=== PATIENT | female | born 1960 | race Caucasian/White ===

== ENCOUNTER 2024-09-26 07:39 | Outpatient (REF) | payer MEDICARE, MEDICAID, SELFPAY ==
--- NOTE | ~2024-09-26 | US_ITS ---
EXAMINATION: US ABDOMEN HISTORY: ELEVATED LFTS TECHNIQUE: Real-time grayscale ultrasound imaging of the abdomen was performed and images were reviewed. COMPARISON: There are no prior studies for comparison. FINDINGS: Liver: The right lobe of the liver measures 14.1 cm in size. The left lobe of the liver measures 8.0 cm in size. The liver demonstrates heterogeneous increased echotexture, consistent with steatosis. No focal mass or intrahepatic biliary ductal dilatation is identified. There is normal hepatopedal flow in the portal vein. Gallbladder and biliary tree: The gallbladder is surgically absent. The common bile duct measures up to 12 mm in diameter. Kidneys: The right kidney measures 10.4 cm in length. The left kidney measures 11.7 cm in length. The kidneys are unremarkable, without evidence of masses, hydronephrosis, or calculi. Pancreas: Pancreatic head is unremarkable. The remainder of the pancreas is obscured by bowel gas. Spleen: The spleen is normal in size and contour, measuring 12.1 cm in length. Abdominal aorta and inferior vena cava: The visualized portions of the abdominal aorta and inferior vena cava are normal in caliber. There is no free fluid in the abdomen. US/US abdomen complete IMPRESSION: 1. Hepatic steatosis. 2. Dilatation of the common bile duct which may be within normal limits for a patient status post cholecystectomy. There is no intrahepatic biliary ductal dilatation. Electronically signed by: Otis Sosa MD 09/26/2024 08:37 AM EDT
--- OUTSIDE RECORDS SUMMARY | 2024-09-26 07:42 | XMS_ITS ---
Author Organization [facility] Address [address] [place] [address] Care Team Providers Care Swimming Teacher Name Role Phone Sonido Puri MD Primary Care Provider Unavaila Kevin Smith Jr Unavailable Allergies Allergen (clinical drug ingredient) Drug/Non Drug Allergy documented on EMR Reaction Allergy Type Onset Date Status lisinopril Lisinopril cough Drug Allergy Activ e REASON FOR VISIT Patient presents today for IBS, gerd Medications Medication SIG (Take, Route, Frequency, Duration) Notes Start Date End Date Status Azelastine & Fluticasone Active Losartan Potassium 50 MG 1 tablet Orally Once a day Active Potassium Bicarbonate 6.5 MEQ as directed Orally Active Ondansetron HCl 4 MG/2ML as directed Intravenous tid Active Tolterodine Tartrate ER 4 MG Oral for 90 [id number],Unavail able Active Omeprazole 40 MG TAKE 1 CAPSULE BY MOUTH EVERY DAY Orally twice a day for 90 days Active Anti-Diarrheal 2 MG 1 tablet as needed Orally Four times a day for 30 days Active hydrOXYzine Pamoate 25 MG TAKE 1 CAPSULE BY MOUTH DAILY AT BEDTIME Oral for 30 as needed Active Cetirizine HCl 10 MG TAKE 1 TABLET BY MOUTH DAILY Diagnosis Unavailable Oral for 30 Active Nabumetone 750 MG 1 tablet Orally Once a day Active hydroCHLOROthiazide 25mg Active ProAir HFA Active PARoxetine HCl 40 MG Orally 10 mg both Active Atorvastatin Calcium 40 MG Orally Active Acetaminophen 1000mg prn Active Tolterodine Tartrate 2 MG 1 tablet Orall y Twice a day Active Vital Signs Temperature 97.5 degrees Fahrenheit 07/16/19 24 Blood pressure systolic 000 mm Hg 07/16/19 24 Blood pressure diastolic 00 mm Hg 024 Height 64 in 07/16/2023 Weight 271 lb 4 oz lbs 07/16/2023 BMI 46.55 kg/m2 07/16/2023 Encounters Encounter Location Date Provider Diagnosis [facility] [address] [place] [address] 07/16/2023 Kevin Kumar Jr Gastroesophageal reflux disease without esophagitis K21.9 ; Irritable bowel syndrome with diarrhea K58.0 and Colon cancer screening Z12.11 Assessments Encounter Date Diagnosis (ICD Code) Assessment Notes Treatment Notes Treatment Clinical Notes Section Notes 07/16/2023 Gastroesophageal reflux disease without esophagitis (ICD-10 - K21.9) Gastroesophageal reflux disease material was printed At this time, she is doing well. We discussed gastroesophageal reflux disease today. We discussed diet, lifestyle modifications, and weight management. She will continue her present regimen. She can continue to use Imodium as needed for her diarrheal symptoms. Followup will be in 12 months. She plans on following up with her primary care for repeat liver function tests. She will let us know how her lab work returns. 07/16/2023 Irritable bowel syndrome with diarrhea (ICD-10 - K58.0) At this time, nesha webb is doing well. We discussed gastroesophageal reflux disease today. We discussed diet, lifestyle modifications, and weight management. She will continue her present regimen. She can continue to use Imodium as needed for her diarrheal symptoms. Followup will be in 12 months. She plans on following up with her primary care for repeat liver function tests. She will let us know how her lab work returns. 07/16/2023 Colon cancer screening (ICD-10 - Z12.11) At this time, nesha webb is doing well. We discussed gastroesophageal reflux disease today. We discussed diet, lifestyle modifications, and weight management. She will continue her present regimen. She can continue to use Imodium as needed for her diarrheal symptoms. Followup will be in 12 months. She plans on following up with her primary care for repeat liver function tests. She will let us know how her lab work returns. Plan Of Treatment Treatment Notes Assessment Notes Gastroesophageal reflux dise ase without esophagitis Gastroesophageal reflux disease material was printed Next Appt Details Follow Up: 1 Year, Reason: Provider Name:Kevin rizzo Jr, 01/19/2025 10:40:00 AM, [address], [address], [place], [address], Progress Notes * SALO HILLOB:1960 ([age] yo F)Acc No.[id number]:07/16/2023 Progress Notes Patient:CANDICE GRESHAM Provider:?Kevin Kumar MD :1960???Age:63 Y???Sex:Female D ate:07/16/2023 Address:[address] [place], [place] [address], [place] Pcp:Sonido Puri MD Subjective: * Chief Complaints: * ???1. Patient presents today for IBS, gerd. * HPI: ???New symptom(s):? Candice is a pleasant [age] woman seen today in followup of gastroesophageal reflux disease and IBS with diarrhea predominance. She was last seen in December of 2021 and was doing well. Since that time, she continues to do well. She reports she was able to cut back on her omeprazole from q. day to one a day. She has no dysphagia, hematemesis, or melena. Weight and appetite have been stable. She was able to stop lisinopril by better diet control of her blood pressure. ?IBS symptoms have been under good control on Imodium. She has been using this as needed, decreasing to once per day and then every other day. She did have a mild elevation of her alkaline phosphatase earlier this year. She has no history of primary biliary cirrhosis or other autoimmune liver disease. * Medical History:?Colonoscopy 04/06/17 no polyps, ten-year followup, GERD, EGD 09/19/17 negative for H. pylori or Tracy's esophagus. Small hiatal hernia, Depression, Osteoarthritis involving the knees, mild COPD, Asthma, Hyperlipidemia, Hypertension, Seasonal allergies, sleep apnea, CPAP, Irritable bowel syndrome, Over active bladder, Liver enzyme on high side alkaline phosphate. * Surgical History:?tubal liga tion , cholecystectomy , bladder suspension , left wrist surgery , carpal tunnel surgery , rectocele/ prolapse repair , uterine ablation . * Family History:?Father: dece ased, LIVER CANCER /RA/OA/CHF, diagnosed with HTN (hypertension), Diabetes, Heart disease.?Mother: , BLADDER CANCER, diagnosed with HTN (hypertension).?Siblings: alive, brother, diagnosed with Diabetes.? FATHER LIVER CANCER 4 MONTHS BEFORE PASSING Denies family hx of colon cancer or polyps. * Social History:?Tobacco Use:?Tobacco Use/Smoking?Are you a: nonsmoker.?Drugs/Alcohol:?Alcohol Screen?Points: 1, Interpretation: Negative.?Miscellaneous:?Marital status: . Occupation: unemployed. ???Very occaional drink. * Medications:?Taking Ondanset nicolle HCl 4 MG/2ML Solution as directed Intravenous , Notes: tid, Taking Potassium Bicarbonate 6.5 MEQ Tablet as directed Orally , Taking Losartan Potassium 50 MG Tablet 1 tablet Orally Once a day, Taking Azelastine & Fluticasone , Taking Tolterodine Tartrate 2 MG Tablet 1 tablet Orally Twice a day, Taking PARoxetine HCl 40 MG Tablet Orally 10 mg both, Taking ProAir HFA , Taking hydroCHLOROthiazide 25mg , Taking Acetaminophen 1000mg prn, Taking Atorvastatin Calcium 40 MG Tablet Orally , Taking Nabumetone 750 MG Tablet 1 tablet Orally Once a day, Taking Cetirizine HCl 10 MG Tablet TAKE 1 TABLET BY MOUTH DAILY Diagnosis Unavailable Oral , Taking hydrOXYzine Pamoate 25 MG Capsule TAKE 1 CAPSULE BY MOUTH DAILY AT BEDTIME Oral , Notes: as needed, Taking Anti-Diarrheal 2 MG Tablet 1 tablet as needed Orally Four times a day, Taking Omeprazole 40 MG Capsule Delayed Release TAKE 1 CAPSULE BY MOUTH EVERY DAY Orally twice a day, Taking Tolterodine Tartrate ER 4 MG Capsule Extended Release 24 Hour Oral , Notes: [id number],Unavailable, Medication List reviewed and reconciled with the patient * Allergies:?Lisinopril: cough . Objective: * Vitals:?Wt: 271 lb 4 oz, Ht: 64 in, BMI:46.55 Index, BP: 000/00 mm Hg, Temp: 97.5. * Examination: ???General Examination: ???On examination today, she appears well. Skin is anicteric lungs are clear heart shows regular rate and rhythm abdomen is soft without focal mass or tenderness. Assessment: * Assessment: 1.?Gastroesophageal reflux d isease without esophagitis - K21.9 (Primary)?2.?Irritable bowel syndrome with diarrhea - K58.0?3.?Colon cancer screening - Z12.11? At this time, she is doing w ell. We discussed gastroesophageal reflux disease today. We discussed diet, lifestyle modifications, and weight management. She will continue her present regimen. She can continue to use Imodium as needed for her diarrheal symptoms. Followup will be in 12 months. She plans on following up with her primary care for repeat liver function tests. She will let us know how her lab work returns. Plan: * Treatment: * Procedure Codes:?3017F COLOR ECTAL CA SCREEN DOC REV, G9903 Pt scrn tbco id as non user, G9744 PATIENT NOT ELIG D/T ACTIVE DX HTN * Preventive Medicine:? ??Counseling:?Care goal follow-up plan:?Above Normal BMI Follow-up?Giving encouragement to exercise,?BMI management provided?Yes.? * Follow Up:?1 Year * * Sign off status: Completed true * Provider:?Kevin Kumar MD Date:?0 07/16/2023 Generated for Saurav valdez/Lena/eTransmitting on:?09/26/2024 07:42 AM EDT History and Physical Notes * HPI (History of Present Illness) Category Sub-Category Detail Notes Category Not es New symptom(s) Candice is a pleasant [age] woman seen today in followup of gastroesophageal reflux disease and IBS with diarrhea predominance. She was last seen in December of 2021 and was doing well. Since that time, she continues to do well. She reports she was able to cut back on her omeprazole from q. day to one a day. She has no dysphagia, hematemesis, or melena. Weight and appetite have been stable. She was able to stop lisinopril by better diet control of her blood pressure. IBS symptoms have been under good control on Imodium. She has been using this as needed, decreasing to once per day and then every other day. She did have a mild elevation of her alkaline phosphatase earlier this year. She has no history of primary biliary cirrhosis or other autoimmune liver disease. Examination Category Sub-Category Detail Notes Category Not es General Examination On [facility] today, she appears well. Skin is anicteric lungs are clear heart shows regular rate and rhythm abdomen is soft without focal mass or tenderness.
--- OUTSIDE RECORDS SUMMARY | 2024-09-26 07:42 | XMS_ITS ---
Author Organization [facility] Address [address] [place] [address] Care Team Providers Care Knotter Name Role Phone Sonido Puri MD Primary Care Provider Unavaila Kevin Smith Jr Unavailable Allergies Allergen (clinical drug ingredient) Drug/Non Drug Allergy documented on EMR Reaction Allergy Type Onset Date Status lisinopril Lisinopril cough Drug Allergy Activ e REASON FOR VISIT Patient presents today for IBS,gerd Medications Medication SIG (Take, Route, Frequency, Duration) Notes Start Date End Date Status Meclizine HCl 25 MG 1 tablet as needed Orally every 12 hrs as needed Active Symbicort 80-4.5 MCG/ACT as directed Inhalation Active Magnesium 400 MG as directed Orally Active Zepbound 2.5 MG/0.5ML 0.5 mL Subcutaneou s for 30 day(s) Active Omeprazole 40 MG 1 Orally Twice a day for 30 day(s) 07/16/2024 Active Vitamin D3 125 MCG (5000 UT) TAKE 1 CAPSULE BY MOUTH DAILY Oral for 90 E559,Unavailabl e Active Omeprazole 40 MG TAKE 1 CAPSULE BY MOUTH EVERY DAY Orally twice a day for 90 days Active Tolterodine Tartrate ER 4 MG Oral for 90 [id number],Unavailab le Active Anti-Diarrheal 2 MG 1 tablet as needed Orally Four times a day for 30 days Active Myrbetriq 50 MG TAKE 1 TABLET BY MOUTH DAILY Oral for 30 Active Potassium Chloride Dona ER 10 MEQ Oral for 90 E876,Unavailabl e Active Cetirizine HCl 10 MG TAKE 1 TABLET BY MOUTH DAILY Diagnosis Unavailable Oral for 30 Active hydrOXYzine Pamoate 25 MG TAKE 1 CAPSULE BY MOUTH DAILY AT BEDTIME Oral for 30 as needed Active Atorvastatin Calcium 40 MG Orally Active Nabumetone 750 MG 1 tablet Orally Once a day Active Acetaminophen 1000mg prn Active Ondansetron HCl 4 MG/2ML as directed Intravenous tid Active PARoxetine HCl 40 MG Orally 10 mg both Active Losartan Potassium 50 MG 1 tablet Orally Once a day Active Azelastine & Fluticasone Active Vital Signs Temperature 97.3 degrees Fahrenheit 07/16/19 25 Blood pressure systolic 000 mm Hg 07/16/19 25 Blood pressure diastolic 00 mm Hg 025 Height 64 in 07/16/2024 Weight 246 lbs 07/16/2024 BMI 42.22 kg/m2 07/16/2024 Encounters Encounter Location Date Provider Diagnosis [facility] [address] [place] [address] 07/16/2024 Kevin Kumar Jr Elevated LFTs R79.89 ; Gastroesophageal reflux disease without esophagitis K21.9 and Irritable bowel syndrome with diarrhea K58.0 Assessments Encounter Date Diagnosis (ICD Code) Assessment Notes Treatment Notes Treatment Clinical Notes Section Notes 07/16/2024 Elevated LFTs (ICD-10 - R79.89) We discussed elevated liver function tests today. We recommended further evaluation with autoimmune markers, hepatitis serologies, and alkaline phosphatase fractionation as well as GGTP. She will have ultrasound imaging. Reflux symptoms have worsened and this may be a result of her using GLP-1 medications. We discussed this today we discussed the side effect profile of GLP-1 medications. We recommended she increase her omeprazole for the next month to 40 mg b.i.d. and let us know how she's doing. IBS symptoms are under good control. She will continue her present regimen. Followup in 6-12 months. Today's visit was 30 minutes. 07/16/2024 Gastroesophageal reflux disease without esophagitis (ICD-10 - K21.9) We discussed elevated liver function tests today. We recommended further evaluation with autoimmune markers, hepatitis serologies, and alkaline phosphatase fractionation as well as GGTP. She will have ultrasound imaging. Reflux symptoms have worsened and this may be a result of her using GLP-1 medications. We discussed this today we discussed the side effect profile of GLP-1 medications. We recommended she increase her omeprazole for the next month to 40 mg b.i.d. and let us know how she's doing. IBS symptoms are under good control. She will continue her present regimen. Followup in 6-12 months. Today's visit was 30 minutes. 07/16/2024 Irritable bowel syndrome with diarrhea (ICD-10 - K58.0) We discussed elevated liver function tests today. We recommended further evaluation with autoimmune markers, hepatitis serologies, and alkaline phosphatase fractionation as well as GGTP. She will have ultrasound imaging. Reflux symptoms have worsened and this may be a result of her using GLP-1 medications. We discussed this today we discussed the side effect profile of GLP-1 medications. We recommended she increase her omeprazole for the next month to 40 mg b.i.d. and let us know how she's doing. IBS symptoms are under good control. She will continue her present regimen. Followup in 6-12 months. Today's visit was 30 minutes. Plan Of Treatment Medication Medication Name Sig Start Date Stop Date Notes Omeprazole 40 MG 1 Orally Twice a day for 30 day(s) 2024 Pending Test Test Name Order Date LIVER PROFILE 07/16/2024 GGT 07/16/2024 CBC w/o DIFF 07/16/2024 HEPATITIS A,B,C PROFILE 07/16/2024 ALK. PHOS. ISOENZYMES 07/16/2024 MITOCHONDRIAL AB 07/16/2024 SMOOTH MUSCLE ANTIBODIES 07/16/2024 US ABD 07/16/2024 Liver Fibrosis Pnl 07/16/2024 ENRIQUE Reflex Titer and Pattern 07/16/2024 Next Appt Details Follow Up: 6-12 months, Reas on: Provider Name:Kevin rizzo , 01/19/2025 10:40:00 AM, [address] [place] [address], [address], [place], [address], Progress Notes * GAURAV HILLRUBYOB:1960 ([age] yo F)Acc No.[id number]:07/16/2024 Progress Notes Patient:?CANDICE HILL Provider:?Kevin Kumar MD :1960???Age:64 Y???Sex:Female D ate:07/16/2024 Address:[address] [place], [place] [id number] Pcp:Sonido Puri MD Subjective: * Chief Complaints: * ???1. Patient presents today for IBS,gerd. * HPI: ???New symptom(s):? Candice is a pleasant 64-year-old woman seen today in followup of multiple GI problems. She was last seen in June 2023 for followup of gastroesophageal reflux disease, IBS with diarrhea predominance. And elevated liver function tests. ?Today she reports feeling well. She has had persistent elevations of her alkaline phosphatase levels. We were able to review these to her patient portal cell phone connection. Alkaline phosphatase in April was 141. This was down from 147 and March. Except for an elevated glucose, chemistry testing and other liver function tests as well as BUN creatinine were normal. She has no personal or family history of liver disease. She denies jaundice, pruritus, or fatigue. There is no history of hepatitis. ?She has a history of gastroesophageal reflux disease which has been treated with omeprazole 40 mg daily. She started taking GLP-1 medications approximately 4 months ago. Since that time, she lost approximately 25 pounds. This was recently changed from Wegovy to Zepbound. Since starting these, she has had increased reflux. She has no dysphagia, hematemesis, or melena. ?IBS symptoms have been stable. She is watching her diet and avoiding foods that tend to bother her. She uses antidiarrheals on a p.r.n. basis. * Medical History:?Colonoscopy 04/06/17 no polyps, ten-year followup, GERD, EGD 09/19/17 negative for H. pylori or Tracy's esophagus. Small hiatal hernia, Depression, Osteoarthritis involving the knees, mild COPD, Asthma, Hyperlipidemia, Hypertension, Seasonal allergies, sleep apnea, CPAP, Irritable bowel syndrome, Overactive bladder, Elevated alkaline phosphatase. * Surgical History:?tubal liga tion , cholecystectomy , bladder suspension , left wrist surgery , carpal tunnel surgery , rectocele/ prolapse repair , uterine ablation . * Family History:?Father: dece ased, LIVER CANCER /RA/OA/CHF, diagnosed with Diabetes, Heart disease, HTN (hypertension).?Mother: , BLADDER CANCER, diagnosed with HTN (hypertension).?Siblings: alive, brother, diagnosed with Diabetes.? FATHER LIVER CANCER 4 MONTHS BEFORE PASSING Denies family hx of colon cancer or polyps. * Social History:?Tobacco Use:?Tobacco Use/Smoking?Are you a: nonsmoker.?Drugs/Alcohol:?Alcohol Screen?Points: 1, Interpretation: Negative.?Miscellaneous:?Marital status: . Occupation: unemployed. ???Very occaional drink. * Medications:?Taking Meclizin e HCl 25 MG Tablet Chewable 1 tablet as needed Orally every 12 hrs, Notes: as needed, Taking Symbicort 80-4.5 MCG/ACT Aerosol as directed Inhalation , Taking Magnesium 400 MG Capsule as directed Orally , Taking Zepbound 2.5 MG/0.5ML Solution Auto-injector 0.5 mL Subcutaneous , Taking Ondansetron HCl 4 MG/2ML Solution as directed Intravenous , Notes: tid, Taking Losartan Potassium 50 MG Tablet 1 tablet Orally Once a day, Taking Azelastine & Fluticasone , Taking PARoxetine HCl 40 MG Tablet Orally 10 mg both, Taking Acetaminophen 1000mg prn, Taking Atorvastatin Calcium [...] Release 24 Hour Oral , Notes: [id number],Unavailable, Taking Myrbetriq 50 MG Tablet Extended Release 24 Hour TAKE 1 TABLET BY MOUTH DAILY Oral , Taking Potassium Chloride Dona ER 10 MEQ Tablet Extended Release Oral , Notes: E876,Unavailable, Taking Vitamin D3 125 MCG (5000 UT) Capsule TAKE 1 CAPSULE BY MOUTH DAILY Oral , Notes: E559,Unavailable, Discontinued Potassium Bicarbonate 6.5 MEQ Tablet as directed Orally , Discontinued Tolterodine Tartrate 2 MG Tablet 1 tablet Orally Twice a day, Discontinued ProAir HFA , Discontinued hydroCHLOROthiazide 25mg , Medication List reviewed and reconciled with the patient * Allergies:?Lisinopril: cough . Objective: * Vitals:?Wt: 246 lbs, Ht: 64 in, BMI:42.22 Index, BP: 000/00 mm Hg, Temp: 97.3. * Examination: ???General Examination: ???On examination today, she appears well. Skin is anicteric. Lungs are clear. Heart shows a regular regular. Abdomen is soft without focal mass or tenderness. Extremities are without edema. Assessment: * Assessment: 1.?Elevated LFTs - R79.89 (P rimary)?2.?Gastroesophageal reflux disease without esophagitis - K21.9?3.?Irritable bowel syndrome with diarrhea - K58.0? We discussed elevated liver function tests today. We recommended further evaluation with autoimmune markers, hepatitis serologies, and alkaline phosphatase fractionation as well as GGTP. She will have ultrasound imaging. Reflux symptoms have worsened and this may be a result of her using GLP-1 medications. We discussed this today we discussed the side effect profile of GLP-1 medications. We recommended she increase her omeprazole for the next month to 40 mg b.i.d. and let us know how she's doing. IBS symptoms are under good control. She will continue her present regimen. Followup in 6-12 months. Today's visit was 30 minutes. Plan: * Treatment: * 2.?Gastroesophageal reflux disease without esophagitis? Start Omeprazole Capsule Delayed Release, 40 MG, 1, Orally, Twice a day, 30 day(s), 60, Refills 0. ? * Procedure Codes:?3017F COLOR ECTAL CA SCREEN DOC REV, G9903 Pt scrn tbco id as non user, G9744 PATIENT NOT ELIG D/T ACTIVE DX HTN * Preventive Medicine:? ??Counseling:?Care goal follow-up plan:?Above Normal BMI Follow-up?Giving encouragement to exercise,?BMI management provided?Yes.? ??Urinary Incontinence:?Urinary Incontinence?Assessment:?Present,?Plan of care documented:?Yes,?Type of plan of care:?Addressing co-morbid factors.? ??Screenings:?Fall Risk Screening?Fall Risk Assessment:?No falls in the past year,?Screening:?No falls in the past year,?Assessment:?Not performed, no reason specified,?Plan of Care:?Not documented, no reason specified.? * Follow Up:?6-12 months * * Sign off status: Completed true * Provider:?Kevin Kumar MD Date:?0 07/16/2024 [facility]uel/Lena/eTrankhangitting on:?09/26/2024 07:42 AM EDT History and Physical Notes * HPI (History of Present Illness) Category Sub-Category Detail Notes Category Not es New symptom(s) Candice is a pleasant 64-year-old woman seen today in followup of multiple GI problems. She was last seen in June 2023 for followup of gastroesophageal reflux disease, IBS with diarrhea predominance. And elevated liver function tests. Today she reports feeling well. She has had persistent elevations of her alkaline phosphatase levels. We were able to review these to her patient portal cell phone connection. Alkaline phosphatase in April was 141. This was down from 147 and March. Except for an elevated glucose, chemistry testing and other liver function tests as well as BUN creatinine were normal. She has no personal or family history of liver disease. She denies jaundice, pruritus, or fatigue. There is no history of hepatitis. She has a history of gastroesophageal reflux disease which has been treated with omeprazole 40 mg daily. She started taking GLP-1 medications approximately 4 months ago. Since that time, she lost approximately 25 pounds. This was recently changed from Wegovy to Zepbound. Since starting these, she has had increased reflux. She has no dysphagia, hematemesis, or melena. IBS symptoms have been stable. She is watching her diet and avoiding foods that tend to bother her. She uses antidiarrheals on a p.r.n. basis. Examination Category Sub-Category Detail Notes Category Not es General Examination On [facility] [place] [facility] today, she appears well. Skin is anicteric. Lungs are clear. Heart shows a regular regular. Abdomen is soft without focal mass or tenderness. Extremities are without edema.
--- OUTSIDE RECORDS SUMMARY | 2024-09-26 07:42 | XMS_ITS ---
Author Organization [facility] Address [address] [place] [address] Care Team Providers Care Hemmer Chainstitch Name Role Phone Sonido Puri MD Primary Care Provider Cathy Kumar Jr, Kevin Wilson REASON FOR VISIT LABS Encounters Encounter Location Date Provider Diagnosis [facility] [address] [place] [address] 09/11/2024 Kevin Kumar Jr Plan Of Treatment Next Appt Details Provider Name:Kevin rizzo Jr, 01/19/2025 10:40:00 AM, [address], [address], [place], [address], Progress Notes * SALO HILLOB:1960 ([age] yo F)Acc No.[id number]:09/11/2024 Patient:?CANDICE HILL :1960???Age:64 Y???Sex:Female Address:[address] [place] [address] * true * Date:? Generated for Printi josé miguel/Lena/eTransmitting on:?09/26/2024 07:42 AM EDT
--- OUTSIDE RECORDS SUMMARY | 2024-09-26 07:42 | XMS_ITS | Patient Health Record ---
Author Organization [facility] Address [address] [place] [address] Care Team Providers Care Supervisor Powdered Sugar Name Role Phone Sonido Puri MD Primary Care Provider Unavaila Kevin Smith Jr Unavailable Allergies Allergen (clinical drug ingredient) Drug/Non Drug Allergy documented on EMR Reaction Allergy Type Onset Date Status lisinopril Lisinopril cough Drug Allergy Activ e Reason For Referral No Information Medications Medication SIG (Take, Route, Frequency, Duration) Notes Start Date End Date Status Meclizine HCl 25 MG 1 tablet as needed Orally every 12 hrs as needed Active Cetirizine HCl 10 MG TAKE 1 TABLET BY MOUTH DAILY Diagnosis Unavailable Oral for 30 Active Symbicort 80-4.5 MCG/ACT as directed Inhalation Active hydrOXYzine Pamoate 25 MG TAKE 1 CAPSULE BY MOUTH DAILY AT BEDTIME Oral for 30 as needed Active Atorvastatin Calcium 40 MG Orally Active Nabumetone 750 MG 1 tablet Orally Once a day Active Magnesium 400 MG as directed Orally Active Zepbound 2.5 MG/0.5ML 0.5 mL Subcutaneou s for 30 day(s) Active Omeprazole 40 MG TAKE 1 CAPSULE BY MOUTH EVERY DAY Orally twice a day for 90 days Active Ondansetron HCl 4 MG/2ML as directed Intravenous tid Active Tolterodine Tartrate ER 4 MG Oral for 90 [id number],Unavailab le Active Anti-Diarrheal 2 MG 1 tablet as needed Orally Four times a day for 30 days Active PARoxetine HCl 40 MG Orally 10 mg both Active Vitamin D3 125 MCG (5000 UT) TAKE 1 CAPSULE BY MOUTH DAILY Oral for 90 E559,Unavailabl e Active Acetaminophen 1000mg prn Active Omeprazole 40 MG 1 Orally Twice a day for 30 day(s) 07/16/2024 Active Losartan Potassium 50 MG 1 tablet Orally Once a day Active Myrbetriq 50 MG TAKE 1 TABLET BY MOUTH DAILY Oral for 30 Active Azelastine & Fluticasone Active Potassium Chloride Dona ER 10 MEQ Oral for 90 E876,Unavailabl e Active Immunizations Vaccine Route Administration Date Status Comme nts Influenza Unknown 04/07/2020 Administered Influenza Unknown 03/25/2021 Administered Influenza Unknown 06/25/2023 Administered Problems Problem Type SNOMED Code ICD Code Onset Dates Problem Status W/U Status Risk Notes Problem 368925103 Colon cancer screening (Z12.11) Active confirmed Problem 861831362 Irritable bowel syndrome with diarrhea (K58.0) Active confirmed Problem 585096876 Gastroesophageal reflux disease without esophagitis (K21.9) Active confirmed Problem 90554336 Diarrhea, unspecified type (R19.7) Active confirmed Vital Signs Temperature 97.3 degrees Fahrenheit 07/16/2024 Blood pressure diastolic 00 mm Hg 07/16/2024 Height 64 in 07/16/2024 Blood pressure systolic 000 mm Hg 07/16/2024 Weight 246 lbs 07/16/2024 BMI 42.22 kg/m2 07/16/2024 Encounters Encounter Location Date Provider Diagnosis [facility] [address] [place] [phone] 07/16/2024 Kevin Kumar Jr Elevated LFTs R79.89 ; Gastroesophageal reflux disease without esophagitis K21.9 and Irritable bowel syndrome with diarrhea K58.0 [facility] [address] [place] [id number] 09/11/2024 Kevin Kumar Jr Assessments Encounter Date Diagnosis (ICD Code) Assessment [...] visit was 30 minutes. Plan Of Treatment Pending Test Test Name Order Date LIVER PROFILE 07/16/2024 GGT 07/16/2024 CBC w/o DIFF 07/16/2024 HEPATITIS A,B,C PROFILE 07/16/2024 ALK. PHOS. ISOENZYMES 07/16/2024 MITOCHONDRIAL AB 07/16/2024 SMOOTH MUSCLE ANTIBODIES 07/16/2024 US ABD 07/16/2024 Liver Fibrosis Pnl 07/16/2024 ENRIQUE Reflex Titer and Pattern 07/16/2024 Future Test Test Name Order Date UPPER GI ENDOSCOPY 06/13/2017 Next Appt Details Provider Name:Kevin rizzo Jr, 01/19/2025 10:40:00 AM, [address] [facility], [address], [place], [address], Insurance Providers Payer Name Payer Address Payer Phone Subscriber Number Group Number Insured Name Patient Relationship to Insured Coverage Start Date Coverage End Date [facility] [address] [address] [place] [address] [id number] CANDICE HILL Self - patient is the insured Medical (General) History Medical History History ICD Code Colonoscopy 04/06/17 no polyps, ten-year followup GERD, EGD 09/19/17 negative f or H. pylori or Tracy's esophagus. Small hiatal hernia depression osteoarthritis involving the knees mild COPD asthma hyperlipidemia hypertension seasonal allergies sleep apnea, CPAP irritable bowel syndrome Overactive bladder Elevated alkaline phosphatase Surgical History Surgery Date(Month/Year) tubal ligation cholecystectomy bladder suspension left wrist surgery carpal tunnel surgery rectocele/ prolapse repair uterine ablation
== END 2024-09-26 07:40 | disposition home or self-care (01) ==
LOC: HO.US 07:39
PROVIDERS: PCP Internal Medicine; Visit Provider Internal Medicine Gastroenterology
DX: R79.89 Other specified abnormal findings of blood chemistry (principal)
CPT/HCPCS: 76700

== ENCOUNTER → 2024-09-26 07:40 | Outpatient (BNV) | payer MEDICARE, MEDICAID, SELFPAY | PROVIDERS: PCP Internal Medicine; Visit Provider Radiology Diagnostic Radiology | DX: R74.01 Elevation of levels of liver transaminase levels (principal); K76.0 Fatty (change of) liver, not elsewhere classified | CPT/HCPCS: 76700 ==